=== PATIENT | female | born 1950 | race African-American/Black ===

== ENCOUNTER → 2019-10-18 | Day surgery (SDC) | payer MEDICARE ==
[2019-10-17 12:10] LABS: BASOPHILS # (AUTO) 0.1 (0.0-0.1); BASOPHILS % 0.6 % (0.0-1.0); EOSINOPHILS # (AUTO) 0.5 (0.0-0.4); EOSINOPHILS % 4.8 % (0.0-6.0); HEMATOCRIT 37.5 % (34.2-44.1); HEMOGLOBIN 11.8 g/dL (12.0-16.0); LYMPHOCYTES # (AUTO) 3.1 (1.0-3.2); LYMPHOCYTES % 28.1 % (18.0-39.1); MEAN CORPUSCULAR HEMOGLOBIN 29.1 pg (28-32); MEAN CORPUSCULAR HGB CONC 31.5 g/dL (31-35); MEAN CORPUSCULAR VOLUME 92.6 fL (81-99); MONOCYTES % 8.8 % (4.4-11.3); NEUTROPHILS # (AUTO) 6.4 (2.1-6.9); NEUTROPHILS % 56.8 % (38.7-80.0); PLATELET COUNT 231 x10e3/uL (140-360); RED BLOOD COUNT 4.05 x10e6/uL (3.6-5.1); RED CELL DISTRIBUTION WIDTH 13.8 % (11.7-14.4)
[2019-10-17 12:29] LABS: ANION GAP 15.6 mmol/L (8-16); BLOOD UREA NITROGEN 21 mg/dL (7-26); BUN/CREATININE RATIO 21 (6-25); CALCIUM 9.8 mg/dL (8.4-10.2); CARBON DIOXIDE 20 mmol/L (22-29); CHLORIDE 105 mmol/L (98-107); CREATININE, SERUM 0.99 mg/dL (0.57-1.11); EST GLOMERULAR FILTRATION RATE > 60 ML/MIN (60-); GLUCOSE 77 mg/dL (74-118); POTASSIUM 4.6 mmol/L (3.5-5.1); SODIUM 136 mmol/L (136-145)
--- NOTE | 2019-10-17 12:41 | Diagnostic Imaging Report ---
EXAM: CHEST 2 VIEWS DATE: 10/17/2019 11:47 AM INDICATION: Preoperative evaluation, left knee surgery COMPARISON: None FINDINGS: The trachea is midline. The lungs are symmetrically expanded without evidence for large focal consolidation, pneumothorax, or significant pleural effusion. The cardiomediastinal silhouette and pulmonary vasculature are within normal limits. No acute osseous abnormality is identified. The surrounding soft tissues are unremarkable. IMPRESSION: No acute cardiopulmonary process identified. Signed by: Dr. Christian Clemens MD on 10/17/2019 12:37 PM
[~2019-10-18] MED LIST: ADVIL200 MG PO; BUPIVACAINE 0.5%/EPI 30 ML SDV INJ ONE; CEFAZOLIN SOD 1 GM/NS 50ML 100 ML IV ONE; DEXAMETHASONE SOD PHOS INJ 4 MG/ML VIAL ONE; DIOVAN160 MG PO; FENTANYL CITRATE/PF 100MCG/2 ML INJ ONE; HYDROCHLOROTHIA25 MG PO; LATANOPROST2.5 ML OU; LIDOCAINE HCL 2% LOCAL INJ 5 ML SDV VIAL INJ ONE; METOCLOPRAMIDE HCL 10 MG/2ML VIAL ONE; MIDAZOLAM HCL 2 MG/2 ML VIAL ONE; MULTIVITAMINS1 EAC7 PO; ONDANSETRON HCL INJ 2MG/ML 2ML 2 MG/ML VIAL ONE; PROPOFOL IV EMULSION 10 MG/ML 20 ML VIAL ONE; SEVOFLURANE INHAL SOLN 250 ML PEN BTL ONE; TIMOLOL MALEATE5 M3 OU; TRIAMTERENE-HC1 EAC2 PO
--- OUTSIDE RECORDS SUMMARY | 2019-10-18 05:43 | XMS REPORT ---
Author [facility] Address Unknown Phone Unavailable Care Team Providers Care Personal Property Assessor Name Role Phone ALIZA HODGES Unavailable Unavailable Problems This patient has no known problems. Allergies, Adverse Reactions, Alerts This patient has no known allergies or adverse reactions. Medications This patient has no known medications. Results Test Description Test Time Test Comments Text Results Atomic Results Result Comments CHEST 2 VIEWS 2019-10-17 12:37:00 [place] [address] Patient Name: PARVEZ PRINGLE MR #: [id number] : 1950 Age/Sex: 69/F Req #: [id number] Adm Physician: Ordered by: ALIZA HODGES MD Report #: [id number] Location: OR Room/Bed: Procedure: [id number] DX/CHEST 2 VIEWS Exam Date: 10/17/19 Exam Time: 1210 REPORT STATUS: Signed EXAM: CHEST 2 VIEWS DATE: 10/17/2019 11:47 AM IN DICATION: Preoperative evaluation, left knee surgery COMPARISON: None FINDINGS: The trachea is midline. The lungs are symmetrically expanded without evidence for large focal consolidation, pneumothorax, or significant pleural effusion. The cardiomediastinal silhouette and pulmonary vasculature are within normal limits. No acute osseous abnormality is identified. The surrounding soft tissues are unremarkable. IMPRESSION: No acute cardiopulmonary process identified. Signed by: Dr. Christian Clemens MD on 10/17/2019 12:37 PM Dictated By: CHRISTIAN CLEMENS MD 1237 Transcribed By: SUKI on 10/17/19 1237 COPY TO: ALIZA HODGES MD SCR MAMM BILATERAL EUNICE CAD DIGITAL 2019-05-26 11:03:17 - SCR MAMM BILATERAL EUNICE CAD DIGITALBILATERAL DIGITAL SCREENING MAMMOGRAM 3D/2D WITH CAD: 05/26/2019CLINICAL: Asymptomatic. Digital breast tomosynthesis was performed in addition to routine CC and MLO views. Current mammographic images were evaluated by either a [employer]ke[employer] M-Vu or a [employer] ImageChecker CAD (computer aided detection system). Comparison is made to exams dated 05/12/2018 mammogram - [facility], 03/12/2017 mammogram - [facility], and 01/17/2016 mammogram - [facility]. The tissue of both breasts is predominantly fatty. No suspicious mass, architectural distortion, malignant type calcification, or lymph node abnormality detected. Breast architecture is stable compared to prior exams.IMPRESSION: NEGATIVEThere is no mammographic evidence of malignancy. Resume annual screening mammography in one year. Nash Tinsley M.D. ss/penrad:05/26/2019 11:03:17 Plugger: Laureen Kaiser , [facility] sent: BIRADS 1-2 Normal Mammogram BI-RADS: 1 Negative
--- OUTSIDE RECORDS SUMMARY | 2019-10-18 05:43 | XMS REPORT | Encounter Summary ---
Author Organization Unknown Address [address] [place] [address] Phone [phone] Care Team Providers Care Hse Advisor Name Role Phone Dr. John Harrington 3 [phone] John Harrington Jr, MD 3 [phone] Sis Carver MD 111 [phone] Norbert Long MD 130 [phone] Reason for Visit Quality BMI DEPRESSION FALL; AWV Annual Wellness Visit Female (VFP); hypertension; Quality 65+ Instructions 1. Adult health examination 2. Body mass index 30+ - obesity learning about healthy weight body mass index: care instructions 3. Advance directive discussed with patient advance care planning: care instructions 4. Depression screening 5. At risk for falls preventing falls: care instructions 6. Benign essential hypertension CMP, serum or plasma CBC w/ auto diff lisinopril 20 mg tablet hydrochlorothiazide 25 mg tablet 7. Mixed hyperlipidemia lipid panel, serum 8. Immunization Adacel (Tdap Adolesn/Adult)(PF)2 Lf-(2.5-5-3-5)-5 Lf/0.5 mL IM syringe 9. Screening for malignant neoplasm of breast MAMMO, screening, bilateral 10. Disorder of bone and articular cartilage bone density 11. Screening for osteoporosis 12. Mild recurrent major depression depression treatment: care instructions 13. Adverse reaction to drug Discussion Note: None recorded. Plan of Care Patient Instructions Screening Recommendations 1. Vaccines Pneumococcal: discussed today and information sent with patient in their Annual Wellness health folder Influenza: discussed today and information sent with patient in their Annual Wellness health folder Shingles: discussed today and information sent with patient in their Annual Wellness health folder Tetanus: Recommended today 2. Mammography Screening: Ordered 3. Colorectal cancer Screening Colonoscopy: discussed today and information sent with patient in their Annual Wellness health folder Fecal Occult Blood: No screening necessary 4. Bone Mass Measurement: Ordered 5. Pap test / Pelvic Exam Screening: No screening necessary 6. Eye Exam Screening: discussed today 7. Cholesterol Screening: discussed today 8. Diabetes Screening: discussed today It was good to see you in the office today for your Medicare Annual Wellness Visit. You have been provided some information on healthy nutrition, including a diet rich in fruits and vegetables, minimizing simple carbohydrates, salt, and saturated fats. I want to encourage regular cardiovascular exercise such as walking at least 30 minutes daily, 5 times per week. Please remember to schedule any preventive health measures that we talked about today. You have also been provided education on fall prevention and community- based lifestyle interventions to help reduce health risks and promote healthy living in your Annual Wellness folder. Reminders Provider Appointments None recorded. Lab CMP, Serum or Plasma 02/14/2019 [facility] CBC W/ Auto Diff 02/14/2019 [facility] Lipid Panel, Serum 02/14/2019 [facility] Referral None recorded. Procedures None recorded. Surgeries None recorded. Imaging Bone Density 02/14/2019 [facility] MAMMO, Screening, Bilateral 02/14/2019 [facility] Medications Name Start Date amlodipine 5 mg tablet TAKE 1 TABLET BY MOUTH EVERY DAY dorzolamide 2 % eye drops hydrochlorothiazide 12.5 mg capsule hydrochlorothiazide 25 mg tablet Take 1 tablet every day by oral route for 90 days. latanoprost 0.005 % eye drops Instill 1 drop every day by ophthalmic route for 75 days. lisinopril 20 mg tablet Take 1 tablet every day by oral route for 90 days. Restasis 0.05 % eye drops in a dropperette timolol maleate 0.5 % eye drops Apply 1 drop every day by ophthalmic route for 90 days. Medications Administered None recorded. Vitals Height Weight BMI Blood Pressure 5 ft 5 in 201 lbs 33.4 kg/m2 160/90 mm[Hg] Lab Results None recorded. Allergies Code Code System Name Reaction Severity Status Onset 3992 RxNorm Epinephrine Tachycardia Active 293070 RxNorm Mold Active Problems Name Status Onset Date Source Benign Essential Hypertension Active 03/30/2017 Generalized Anxiety Disorder Active 12/30/2017 Bilateral Glaucoma Active 12/30/2017 Mixed Hyperlipidemia Active 07/08/2018 Hypercalcemia Active 07/08/2018 Liver Enzymes Abnormal Active 07/08/2018 Procedures Date Name Performed by 11/15/2017 Eye Surgery Information not available 11/15/2015 Other Information not available 11/15/2009 Other Information not available 11/15/1977 Other Information not available Cholecystectomy (Gall Bladder Removal) Information not available Hysterectomy (Total) Information not available Tubal Ligation Information not available 02/14/2019 Bone Density [facility] [address] [place] [address] (Work [address]) 02/14/2019 MAMMO, Screening, Bilateral [facility] [address] [place] [address] (Work [address]) Vaccine List Vaccine Type influenza, high dose seasonal 09/15/20180.5 mL pneumococcal conjugate PCV 13 03/21/20180.5 mL pneumococcal polysaccharide PPV23 02/04/20170.5 mL Tdap 0.5 mL zoster subunit 03/25/2018 09/15/20180.5 mg Social History Smoking Status Never Smoker Past Encounters 02/14/2019 Adult Health Examination; Body Mass Index 30+ - Obesity; Advance Directive Discussed with Patient; Depression Screening; At Risk for Falls; Benign Essential Hypertension; Mixed Hyperlipidemia; Immunization; Screening for Malignant Neoplasm of Breast; Disorder of Bone and Articular Cartilage; Screening for Osteoporosis; Mild Recurrent Major Depression; Adverse Reaction to Drug John Harrington Jr, MD: [address] [facility], [facility], [place] [address], Ph. History of Present Illness Hypertension Reported By: Patient HPI: Severity: mild. Onset/Timing: gradual onset. Alleviating Factors: relieved with rest, medication. Self Care: not under emotional stress, blood pressure goal: 130/80. Associated Symptoms: no shortness of breath, no fatigue, no decline in exercise capacity Mini Cog Reported By: Patient Functional Ability: Personal/Social/ Draw a clock and write in the numbers in the correct place, and set the time to 10 minutes after 11 o'clock was completed correctly? Yes, 3 word recall: Your nurse or doctor will ask you to remember 3 words. In 5 minutes, they will ask you to repeat them. Patient recalled 3 words Hyperlipidemia Reported By: Patient HPI: Type of hyperlipidemia: combined, hypercholesterolemia. Duration: chronic. Current Therapy: currently taking:. Complications: no coronary artery disease Review of Systems Comprehensive General Adult ROS Reported By: Patient Constitutional: Constitutional: no significant weight gain, no significant weight loss Cardiovascular: Cardiovascular: no chest pain, no shortness of breath when walking Respiratory: Respiratory: no cough, no wheezing, no shortness of breath Endocrine: Endocrine: no fatigue Physical Exam Cardiology Exam Reported By: Patient Constitutional: General Appearance: well-nourished, well-developed, appears stated age. Level of Distress: comfortable Lungs: Respiratory Effort: unlabored. Chest Exam: no chest wall tenderness. Auscultation: clear, no wheezing, no rales, no rhonchi Cardiovascular: Rate And Rhythm: regular. Heart Sounds: normal S1, physiologically split S2, no rub, no gallop, no click. Systolic Murmur: not heard. Diastolic Murmur: not heard. Extremities: no cyanosis, no edema, no peripheral signs of emboli Peripheral Pulses: Pulses: full and equal in all extremities except if noted Skin: Inspection and Palpation: warm and dry
--- OUTSIDE RECORDS SUMMARY | 2019-10-18 05:44 | XMS REPORT | Encounter Summary ---
Author Organization Unknown Address [address] [place] [address] Phone [phone] Care Team Providers Care Brim Presser Name Role Phone Dr. John Harrington 3 [phone] John Harrington Jr, MD 3 [phone] Sis Carver MD 111 [phone] Norbert Long MD 130 [phone] Reason for Visit hypertension Instructions 1. Benign essential hypertension Discussion Note: None recorded. Patient educational handouts: No information available. Plan of Care Reminders Provider Appointments None recorded. Lab None recorded. Referral None recorded. Procedures None recorded. Surgeries None recorded. Imaging None recorded. Medications Name Start Date fluticasone propionate 50 mcg/actuation nasal spray,suspension [place] 1 spray twice a day by intranasal route. hydrochlorothiazide 25 mg tablet Take 1 tablet every day by oral route for 90 days. latanoprost 0.005 % eye drops Instill 1 drop every day by ophthalmic route for 75 days. timolol maleate 0.5 % eye drops Apply 1 drop every day by ophthalmic route for 90 days. valsartan 320 mg tablet Take 1 tablet every day by oral route for 90 days. Medications Administered None recorded. Vitals Height Weight BMI Blood Pressure 5 ft 5 in 199.4 lbs 33.2 kg/m2 (1) 144/90 mm[Hg] (2) 140/84 mm[Hg] (3) 140/84 mm[Hg] Lab Results None recorded. Allergies Code Code System Name Reaction Severity Status Onset 3992 RxNorm Epinephrine Tachycardia Active 259353 RxNorm Mold Active Problems Name Status Onset [...] not available Tubal Ligation Information not available Vaccine List Vaccine Type influenza, high dose seasonal 09/15/20180.5 mL pneumococcal conjugate PCV 13 03/21/20180.5 mL pneumococcal polysaccharide PPV23 02/04/20170.5 mL Tdap 0.5 mL zoster subunit 03/25/2018 09/15/20180.5 mg Social History Smoking Status Never Smoker Past Encounters 04/06/2019 Benign Essential Hypertension John Harrington Jr, MD: [address], [address], [place] [address], Ph. 03/16/2019 Benign Essential Hypertension; Rihwmlzgecn-ekqksobisx-zmituu Inhibitor Adverse Reaction; Seasonal Allergy John Harrington Jr, MD: [address], [address], [place] [address], Ph. History of Present Illness Hypertension Reported By: Patient HPI: Severity: mild. Onset/Timing: gradual onset. Alleviating Factors: relieved with rest, medication. Self Care: not under emotional stress, blood pressure goal: 130/80. Associated Symptoms: no shortness of breath, no fatigue, no decline in exercise capacity Note:Patient presents for routine blood pressure evaluation. Currently without new complaint. Review of Systems Comprehensive General Adult ROS Reported By: Patient Constitutional: Constitutional: no significant weight gain, no significant weight loss Cardiovascular: Cardiovascular: no chest pain, no shortness of breath when walking Respiratory: Respiratory: no cough, no wheezing, no shortness of breath Endocrine: Endocrine: no fatigue Physical Exam Neurology Exam, Cardiology Exam Reported By: Patient Constitutional: Weight: well-nourished. Ambulation: ambulates independently Head: Size/Trauma: normocephalic Mental Status: Orientation oriented to person, oriented to place, oriented to time. Mood/Affect: appropriate mood, appropriate affect. Language: has spontaneous speech. Memory: recent memory intact, remote memory intact. Fund of Knowledge: current events, past history
--- OUTSIDE RECORDS SUMMARY | 2019-10-18 05:44 | XMS REPORT | Encounter Summary ---
Author Organization Unknown Address [address] [place] [address] Phone [phone] Care Team Providers Care Head Of Academic Technology Name Role Phone Dr. John Harrington 3 [phone] John Harrington Jr, MD 3 [phone] iSs Carver MD 111 [phone] Norbert Long MD 130 [phone] Reason for Visit hypertension Instructions 1. Benign essential hypertension valsartan 320 mg tablet urinalysis, dipstick 2. Osteoarthritis of knee XR, knee, 3 view Discussion Note: None recorded. Patient educational handouts: No information available. Plan of Care Reminders Provider Appointments Est Patient 08/18/2019 11:30AM John Harrington Jr, MD Lab Urinalysis, Dipstick 07/26/2019 [facility] Referral None recorded. Procedures None recorded. Surgeries None recorded. Imaging XR, Knee, 3 View 07/26/2019 [facility] Medications Name Start Date fluticasone propionate 50 mcg/actuation nasal spray,suspension [place] 1 spray twice a day by intranasal route. hydroxyzine HCl 50 mg tablet Take 1 tablet twice a day by oral route as needed for 15 days. latanoprost 0.005 % eye drops Instill 1 drop every day by ophthalmic route for 75 days. timolol maleate 0.5 % eye drops Apply 1 drop every day by ophthalmic route for 90 days. triamterene 37.5 mg-hydrochlorothiazide 25 mg tablet Take 1 tablet every day by oral route for 90 days. valsartan 320 mg tablet Take 1 tablet every day by oral route for 90 days. Medications Administered None recorded. Vitals Height Weight BMI Blood Pressure 5 ft 5 in 201.2 lbs 33.5 kg/m2 160/90 mm[Hg] Lab Results None recorded. Allergies Code Code System Name Reaction Severity Status Onset 3992 RxNorm Epinephrine Tachycardia Active 372443 RxNorm Mold Active Problems Name Status Onset [...] not available Tubal Ligation Information not available 07/26/2019 XR, Knee, 3 View [facility] [address] [place] [address] ([address]) Vaccine List Vaccine Type influenza, high dose seasonal 09/15/20180.5 mL pneumococcal conjugate PCV 13 03/21/20180.5 mL pneumococcal polysaccharide PPV23 02/04/20170.5 mL Tdap 0.5 mL zoster subunit 03/25/2018 09/15/20180.5 mg Social History Tobacco Smoking Status Never Smoker Past Encounters 07/26/2019 Benign Essential Hypertension; Osteoarthritis of Knee John Harrington Jr, MD: [address] [facility], [address], [place] [address], Ph. History of Present Illness Hypertension Reported By: Patient HPI: Severity: intense. Onset/Timing: gradual onset. Alleviating Factors: relieved with [...] Cardiology Exam Reported By: Patient Constitutional: Weight: obese. Ambulation: ambulates independently Head: Size/Trauma: normocephalic Mental Status: Orientation oriented to person, oriented to place, oriented to time. Mood/Affect: appropriate mood, appropriate affect. Language: has spontaneous speech. Memory: recent memory intact, remote memory intact. Fund of Knowledge: current events, past history
--- OUTSIDE RECORDS SUMMARY | 2019-10-18 05:44 | XMS REPORT | Encounter Summary ---
Author Organization Unknown Address [address] [place] [address] Phone [phone] Care Team Providers Care Senior Java Web Application Developer Name Role Phone Dr. John Harrington 3 [phone] John Harrington Jr, MD 3 [phone] Sis Carver MD 111 [phone] Norbert Long MD 130 [phone] Reason for Visit rash Instructions 1. Benign essential hypertension valsartan 320 mg tablet triamterene 37.5 mg-hydrochlorothiazide 25 mg tablet 2. Mixed hyperlipidemia 3. Pruritus of skin hydroxyzine HCl 50 mg tablet Discussion Note: None recorded. Patient educational handouts: No information available. Plan of Care Reminders Provider Appointments Est Patient 07/14/2019 9:15AM John Harrington Jr, MD Lab None recorded. Referral None recorded. Procedures None recorded. Surgeries None recorded. Imaging None recorded. Medications Name Start Date fluticasone propionate 50 mcg/actuation nasal spray,suspension [place] 1 spray twice a day by intranasal route. hydrochlorothiazide 25 mg tablet Take 1 tablet every day by oral route for 90 days. hydroxyzine HCl 50 mg tablet Take 1 [...] BMI Blood Pressure 5 ft 5 in 204 lbs 33.9 kg/m2 (1) 178/90 mm[Hg] (2) 152/88 mm[Hg] Lab Results None recorded. Allergies Code Code System Name Reaction Severity Status Onset 3992 RxNorm Epinephrine Tachycardia Active 943909 RxNorm Mold Active Problems Name Status Onset [...] Tobacco Smoking Status Never Smoker Past Encounters 06/22/2019 Benign Essential Hypertension; Mixed Hyperlipidemia; Pruritus of Skin John Harrington Jr, MD: [address] [facility], [address], [place] [address], Ph. History of Present Illness Rash/Skin Lesion Reported By: Patient HPI: Quality: not painful, not bleeding. Severity: mild. Duration: has noted for . Onset/Timing: abrupt onset. Context: no new detergents or skin products, no one else with similar rash. Alleviating Factors: ; No relief with OTC antihistamines. Associated Symptoms: no fever, no cold symptoms, no nausea, no vomiting, no diarrhea; No mucocutaneous involvement, shortness of breath, or wheezing. Treatment History: no history of treatment Review of Systems:ROS as noted in the HPI Review of Systems Comprehensive General Adult ROS Reported By: Patient Constitutional: Constitutional: no significant weight gain, no significant weight loss Cardiovascular: Cardiovascular: no chest pain, no shortness of breath when walking Respiratory: Respiratory: no cough, no wheezing, no shortness of breath Endocrine: Endocrine: no fatigue Physical Exam Neurology Exam, General Rash/Skin Lesion Exam Reported By: Patient Constitutional: Weight: well-nourished. Ambulation: ambulates independently Head: Size/Trauma: normocephalic Mental Status: Orientation oriented to person, oriented to place, oriented to time. Mood/Affect: appropriate mood, appropriate affect. Language: has spontaneous speech. Memory: recent memory intact, remote memory intact. Fund of Knowledge: current events, past history Skin: Lesion Type: papules. Color: flesh colored. General Appearance clustered. Infectious signs: none, no drainage, no erythema, no swelling
--- OUTSIDE RECORDS SUMMARY | 2019-10-18 05:44 | XMS REPORT | Encounter Summary ---
Author Organization Unknown Address [address] [place] [address] Phone [phone] Care Team Providers Care Physical Therapist Clinic Director Name Role Phone Dr. John Harrington 3 [phone] John Harrington Jr, MD 3 [phone] Sis Carver MD 111 [phone] Norbert Long MD 130 [phone] Reason for Visit hypertension Instructions 1. Benign essential hypertension 2. Influenza vaccination Fluzone High-Dose 2018-20 (PF) 180 mcg/0.5 mL intramuscular syringe Discussion Note: None recorded. Patient educational handouts: No information available. Plan of Care Reminders Provider Appointments Est Patient 08/21/2019 3:45PM John Harrington Jr, MD Lab None recorded. Referral None recorded. Procedures None recorded. Surgeries None recorded. Imaging None recorded. Medications Name Start Date fluticasone propionate 50 mcg/actuation nasal spray,suspension [place] 1 spray twice a day by intranasal [...] BMI Blood Pressure 5 ft 5 in 203 lbs 33.8 kg/m2 (1) 138/86 mm[Hg] (2) 136/82 mm[Hg] Results Lab Results Date Name Specimen Result Interpretation Description Value Range Status Address 07/26/2019 Urinalysis, Dipstick Color Color yellow [facility]: [address] Color Appearance clear [facility]: [address], [place] Color Glucose negative [facility]: [address] [place] Color Bilirubin negative [facility]: [address] [place] Color Ketones negative [facility]: [address] [place] Color Specific [place] 1.010 [facility]: [address] [place] Color Blood negative [facility]: [address] [place] Color PH 7.0 [facility]: [address], [place] Color Protein negative [facility]: [address], [place] Color Urobilinogen 0.2 [facility]: [address], [place] Color Nitrites negative [facility]: [address], [place] Color Leukocytes negative [facility]: [address], [place] Allergies Code Code System Name Reaction Severity Status Onset 3992 RxNorm Epinephrine Tachycardia Active 562262 RxNorm Mold Active Problems Name Status Onset Date Source Benign Essential Hypertension Active 03/30/2017 Generalized Anxiety Disorder Active 12/30/2017 Bilateral Glaucoma Active 12/30/2017 Mixed Hyperlipidemia Active 07/08/2018 Hypercalcemia Active 07/08/2018 Liver Enzymes Abnormal Active 07/08/2018 Procedures Date Name Performed by 11/15/2017 Eye Surgery Information not available 11/15/2016 Orthopedic Surgery Information not available 11/15/2015 Other Information not available 11/15/2009 Other Information not available 11/15/1977 Other Information not available 11/15/1974 Other Information not available 11/15/1970 Other Information not available Cholecystectomy (Gall Bladder Removal) Information not available Hysterectomy (Total) Information not available Tubal Ligation Information not available 07/26/2019 XR, Knee, 3 View [facility] [address] [place] [address] (Work Place) Vaccine List Vaccine Type influenza, high dose seasonal 09/15/20180.5 mL 08/18/20190.5 mL pneumococcal conjugate PCV 13 03/21/20180.5 mL pneumococcal polysaccharide PPV23 02/04/20170.5 mL Tdap 0.5 mL zoster subunit 03/25/2018 09/15/20180.5 mg Social History Tobacco Smoking Status Never Smoker Past Encounters 08/18/2019 Benign Essential Hypertension; Influenza Vaccination John Harrington Jr, MD: [address], [place] [address], Ph. 07/26/2019 Benign Essential Hypertension; Osteoarthritis of Knee John Harrington Jr, MD: [address], [place] [address], Ph. History of Present Illness Hypertension Reported By: Patient HPI: Severity: mild, intense. Onset/Timing: gradual onset. Alleviating Factors: relieved with rest, medication. Self Care: not under emotional stress, blood pressure goal: 130/80. Associated Symptoms: no shortness of breath, no fatigue, no decline in exercise capacity Hyperlipidemia Reported By: Patient HPI: Type of hyperlipidemia: combined, hypercholesterolemia. Duration: chronic. Current Therapy: currently taking: no med therapy, last LDL level: 172 date: 172. Complications: no coronary artery disease. Risk Factors: hypertension, obesity Note:Patient presents for routine blood pressure evaluation. [...] Exam Reported By: Patient Constitutional: General Appearance: well-developed, appears stated age, obese. Level of Distress: comfortable Lungs: Respiratory Effort: [...]
--- OUTSIDE RECORDS SUMMARY | 2019-10-18 05:44 | XMS REPORT | Encounter Summary ---
Author Organization Unknown Address [address] [place] [address] Phone [phone] Care Team Providers Care Install Technician Name Role Phone Dr. John Harrington 3 [phone] John Harrington Jr, MD 3 [phone] Sis Carver MD 111 [phone] Norbert Long MD 130 [phone] Reason for Visit hypertension; URI Instructions 1. Benign essential hypertension valsartan 320 mg tablet 2. Doxjanxedsm-ysphpidqnb-imidvk inhibitor adverse reaction 3. Seasonal allergy fluticasone propionate 50 mcg/actuation nasal spray,suspension triamcinolone acetonide 40 mg/mL suspension for injection dexamethasone 4 mg/mL injection solution Discussion Note: None recorded. Patient educational handouts: No information available. Plan of Care Reminders Provider Appointments None recorded. Lab None recorded. Referral None recorded. Procedures None recorded. Surgeries None recorded. Imaging None recorded. Medications Name Start Date fluticasone propionate 50 mcg/actuation nasal spray,suspension [place] 1 spray twice a day by intranasal [...] ft 5 in 201 lbs 33.4 kg/m2 (1) 150/80 mm[Hg] (2) 152/80 mm[Hg] Lab Results Date Name Specimen Result Interpretation Description Value Range Status Address 02/17/2019 CBC W/ Auto Diff Wbc 9.86 x10*3/L 3.98-10.04 x10*3/L [facility] [address] [facility] [facility] [facility] Rbc 4.13 10*12/L 3.93-5.22 10*12/L Final [facility] Laboratory: [address] [place] Hemoglobin 12.10 g/dL 11.20-15.70 g/dL Final [facility] Laboratory: [address] [place] Hematocrit 37.7 % 34.1-44.9 % Final [facility] Laboratory: [address] [place] Mcv 91.3 fL 80.0-100.0 fL Final [facility] [address] [facility] [facility] Mch 29.3 pg 25.6-32.2 pg Final [facility] [address] [facility] [facility] Low Mchc 32.1 g/dL 32.2-35.5 g/dL Final [facility] [address] [facility] [facility] RDW-SD 45.7 fL 36.4-46.3 fL Final [facility] [address] [facility] [facility] Platelet Count 296.0 k/uL 182.0-369.0 k/uL Final [facility]: [address] [facility] [facility] Mpv 11.5 fL 7.5-11.5 fL Final [facility] Laboratory: [address] [place] Neut% 55.4 % 34.0-71.1 % Final [facility]: [address] [facility] Lymph% 25.6 % 19.3-51.7 % Final [facility] [address] [facility] High Mon% 12.7 % 4.7-12.5 % Final [facility]: [address] [facility] High Eos% 5.9 % 0.7-5.8 % Final [facility] [address] [facility] Baso% 0.4 % 0.1-1.2 % Final [facility] Laboratory: [address] [place] Neut# 5.5 x10*3/L 1.6-6.1 x10*3/L Final [facility] [address] [facility] Lymph# 2.5 x10*3/L 1.2-3.7 x10*3/L Final [facility] Laboratory: [address] [place] High Mon# 1.3 x10*3/L 0.2-0.9 x10*3/L Final [facility] Laboratory: [address] [place] High Eos# 0.58 x10*3/L 0.04-0.36 x10*3/L Final [facility] Laboratory: [address] [facility] [place] Baso# 0.04 x10*3/L 0.01-0.08 x10*3/L Final [facility]: [address] [facility] [facility] 02/17/2019 CMP, Serum or Plasma Alt 28 U/L 0-55 U/L Final [facility] Laboratory: [address] [place] [address] Ast 28 U/L 5-34 U/L Final [facility] Laboratory: [address] [place] [address] High Bun 22.1 mg/dL 9.8-20.1 mg/dL Final [facility] Laboratory: [address] Alk Phos 69 unit/L 40-150 unit/L Final [facility] Laboratory: [address] [place] [address] High Glucose 102 mg/dL 70-99 mg/dL Final [facility] Laboratory: [address] [place] [address] Albumin 4.2 g/dL 3.5-5.0 g/dL Final [facility] Laboratory: [address] [place] [address] Creatinine 1.01 mg/dL 0.57-1.11 mg/dL Final [facility] Laboratory: [address] [place] [address] ABNORMAL eGFR Non- 55 mL/min/1.73m2 Final [facility] Laboratory: [address] Total Bilirubin 0.3 mg/dL 0.2-1.2 mg/dL Final [facility] Laboratory: [address] eGFR - >60 mL/min/1.73m2 Final [facility]: [address] [facility] Sodium 136 mEq/L 136-145 mEq/L Final [facility] Laboratory: [address] Potassium 4.4 mEq/L 3.5-5.1 mEq/L Final [facility] Laboratory: [address] [place] Chloride 103 mmol/L 98-107 mmol/L Final [facility] Laboratory: [address] [place] High Total Protein 8.8 g/dL 6.4-8.3 g/dL Final [facility] Laboratory: [address] [place] Calcium 10.1 mg/dL 8.4-10.2 mg/dL Final [facility] Laboratory: [address] [place] Low Co2 22.1 mmol/L 23.0-31.0 mmol/L Final [facility] Laboratory: [address] [place] Anion Gap 11 calc Final [facility]: [address] [facility] [facility] 02/17/2019 Lipid Panel, Serum Hdl 40 mg/dL 40-60 mg/dL Final [facility] Laboratory: [address] [place] High Triglyceride 155 mg/dL 0-149 mg/dL Final [facility] Laboratory: [address] [place] VLDL Calc. 31 mg/dL Final [facility] Laboratory: [address] [place] cholesterol/HDL Ratio 6.1 mg/dL Final [facility] Laboratory: [address] [place] High non-HDL Cholesterol Calc. 203 mg/dL 0-160 mg/dL Final [facility] Laboratory: [address] [place] High Cholesterol 243 mg/dL 0-199 mg/dL Final [facility] Laboratory: [address] High LDL Calc. 172 mg/dL 0-130 mg/dL Final [facility] Laboratory: [address] Allergies Code Code System Name Reaction Severity Status Onset 3992 RxNorm Epinephrine Tachycardia Active 218461 RxNorm Mold Active Problems Name Status Onset [...] Ligation Information not available 02/14/2019 Bone Density Tammy Temple [facility] [address] [place] [address] ([address]) 02/14/2019 MAMMO, Screening, Bilateral [place] [facility] [address] [place] [address] (Work Place) Vaccine List Vaccine Type influenza, high dose seasonal 09/15/20180.5 mL pneumococcal conjugate PCV 13 03/21/20180.5 mL pneumococcal polysaccharide PPV23 02/04/20170.5 mL Tdap 0.5 mL zoster subunit 03/25/2018 09/15/20180.5 mg Social History Smoking Status Never Smoker Past Encounters 03/16/2019 Benign Essential Hypertension; Ltxyoexssfi-nsfwkkjgkx-hghgny Inhibitor Adverse Reaction; Seasonal Allergy John Harrington Jr, MD: [address], [facility] [address], [place] [address], Ph. 02/14/2019 Adult Health Examination; Body Mass Index 30+ - Obesity; Advance Directive Discussed with Patient; Depression Screening; At Risk for Falls; Benign Essential Hypertension; Mixed Hyperlipidemia; Immunization; Screening for Malignant Neoplasm of Breast; Disorder of Bone and Articular Cartilage; Screening for Osteoporosis; Mild Recurrent Major Depression; Adverse Reaction to Drug John Harrington Jr, MD: [address], [facility] [address], [place] [address], Ph. History of Present Illness Hypertension Reported [...] currently taking:. Complications: no coronary artery disease URI - AMS Reported By: Patient Upper Respiratory Symptoms: Onset/Timing: gradual. Duration: constant. Location: head, throat. Quality: no sore throat, nasal congestion/discharge, dry cough. Severity: moderate. Context: no sick contacts, no foreign travel. Associated Symptoms: no fever, no chills, no shortness of breath, no wheezing, no significant weight loss, no diarrhea, no nausea Review of Systems Comprehensive General Adult ROS Reported By: Patient Constitutional: Constitutional: no fever, no night sweats, no significant weight gain, no significant weight loss Eyes: Eyes: no vision change ENMT: Ears: no difficulty hearing, no ear pain. Mouth/Throat: no sore throat Cardiovascular: Cardiovascular: no chest pain, no shortness of breath when walking Respiratory: Respiratory: no wheezing, no shortness of breath, cough Gastrointestinal: Gastrointestinal: no nausea, no diarrhea Musculoskeletal: Musculoskeletal: no arthralgias/joint pain Integumentary: Skin: no rashes Endocrine: Endocrine: no fatigue Allergic/Immunologic: Allergy/Immunologic: runny nose Physical Exam Upper Respiratory Infection Exam Comprehensive, Upper Respiratory Infection Exam, Cardiology Exam Reported By: Patient Constitutional: General Appearance well-nourished, well-developed, appears stated age Skin: Inspection and Palpation: warm and dry Head: Sinuses no tenderness Ears: Right External auditory canal normal appearance, no erythema. Left External auditory canal normal appearance, no erythema. Right Tympanic membrane dull, bulging. Left Tympanic membrane: dull, bulging Nose: Nasal Skin: no lesion, no lacerations. Nasal Mucosa normal, pink and moist Oral Cavity/Mouth: Oral Mucosa: normal, moist, no lesions. Posterior pharynx: lymphoid hyperplasia (cobblestoning) Lymph Nodes: Cervical no palpable lymph node enlargement Neck: Neck symmetrical, trachea midline Lungs: Respiratory effort unlabored. Auscultation breath sounds normal, no wheezing, no rales / crackles, no rhonchi, clear. Chest Exam: no chest wall tenderness Cardiovascular System: Auscultation regular rate and rhythm, no murmur, no rubs, no gallops. Observation/Palpation of peripheral vascular system no edema. Rate And Rhythm regular. Heart Sounds normal s1, physiologically split S2, no click. Systolic Murmur: not heard. Diastolic Murmur: not heard. Extremities: no cyanosis, no peripheral signs of emboli Peripheral Pulses: Pulses: full and equal in all extremities except if noted
--- OUTSIDE RECORDS SUMMARY | 2019-10-18 05:44 | XMS REPORT | Encounter Summary ---
Author Organization Unknown Address [address] [place] [address] Phone [phone] Care Team Providers Care Watch Inspector Name Role Phone Dr. John Harrington 3 [phone] John Harrington Jr, MD 3 [phone] iSs Carver MD 111 [phone] Norbert Long MD 130 [phone] Reason for Visit URI Instructions 1. Benign essential hypertension 2. Seasonal allergy triamcinolone acetonide 40 mg/mL suspension for injection dexamethasone 4 mg/mL injection solution Nasonex 50 mcg/actuation [place] Discussion Note: None recorded. Patient educational handouts: No information available. Plan of Care Reminders Provider Appointments None recorded. Lab None recorded. Referral None recorded. Procedures None recorded. Surgeries None recorded. Imaging None recorded. Medications Name Start Date hydroxyzine HCl 50 mg tablet Take 1 tablet twice a day by oral route as needed for 15 days. latanoprost 0.005 % eye drops Instill 1 drop every day by ophthalmic route for 75 days. Nasonex 50 mcg/actuation [place] 2 sprays every day by intranasal route for 30 days. timolol maleate 0.5 % eye drops [...] 5 in 204 lbs 33.9 kg/m2 (1) 138/82 mm[Hg] (2) 142/84 mm[Hg] Results Lab Results None recorded. Allergies Code Code System Name Reaction Severity Status Onset 3992 RxNorm Epinephrine Tachycardia Active 224755 RxNorm Mold Active Problems Name Status Onset [...] Tobacco Smoking Status Never Smoker Past Encounters 09/01/2019 Benign Essential Hypertension; Seasonal Allergy John Harrington Jr, MD: [address], [facility] [address], [place] [address], Ph. 08/18/2019 Benign Essential Hypertension; Influenza Vaccination John Harrington Jr, MD: [address], [facility] [address], [place] [address], Ph. History of Present Illness Upper Respiratory Symptoms Reported By: Patient URI Reported By: Patient Upper Respiratory Symptoms: Onset/Timing: [...] fever, no night sweats, no significant weight loss Eyes: Eyes: no vision change ENMT: Ears: no difficulty hearing, no ear pain. Mouth/Throat: sore throat Cardiovascular: Cardiovascular: no chest pain, no shortness of breath when walking Respiratory: Respiratory: no wheezing, no shortness of breath, cough Gastrointestinal: Gastrointestinal: no nausea, no diarrhea Musculoskeletal: Musculoskeletal: no arthralgias/joint pain Integumentary: Skin: no rashes Endocrine: Endocrine: fatigue Allergic/Immunologic: Allergy/Immunologic: runny nose Physical Exam Upper Respiratory Infection Exam Comprehensive, Upper Respiratory Infection Exam Reported By: Patient Constitutional: General Appearance in no acute distress Head: Sinuses no tenderness Ears: Right External [...] no wheezing, no rales / crackles, no rhonchi Cardiovascular System: Auscultation regular rate and rhythm, no murmur, no rubs
[2019-10-18 09:40] VITALS: BP 130/74
--- NOTE | 2019-10-18 15:24 | Operative Report ---
DATE OF PROCEDURE: 10/18/2019 SURGEON: Rio Long MD PREOPERATIVE DIAGNOSES: Left knee medial meniscus tear and left knee degenerative joint disease of the knee. POSTOPERATIVE DIAGNOSES: Left knee medial meniscus tear and left knee degenerative joint disease of the knee. OPERATIONS AND PROCEDURES PERFORMED: The patient underwent left knee exam under anesthesia, left knee arthroscopy, left knee partial medial meniscectomy, left knee chondroplasty of the patella, the trochlea, the medial femoral condyle, medial tibial plateau, and the lateral tibial plateau, and also resection of a medial shelf plica. MANAGER INVESTMENT: JJ Tucker. ANESTHESIA: General endotracheal intubation anesthesia. IV FLUIDS: Per the anesthesia record. BRIEF DESCRIPTION OF THE PATIENT'S OPERATIVE PROCEDURE: Ms. Tan was taken to the operating room and placed in the supine position on the operating table. Following induction of general anesthesia as well as endotracheal intubation, the patient's left lower extremity was examined under anesthesia. She was found to have a mild effusion within the knee joint, but otherwise ligamentously stable knee. The patient's lower extremity was prepped and draped in standard surgical fashion. A 2-port technique was used to provide this patient's arthroscopic evaluation of the knee joint. Examination of the suprapatellar pouch and medial and lateral gutters found no evidence of loose bodies. There was, however, evidence of chondromalacia of the patellar and trochlear surfaces. There was also a medial shelf plica interdigitating between the patella and trochlea. This was red and inflamed. The scope was then advanced to medial compartment and medial compartment demonstrated a torn of the posterior horn and root of the medial meniscus. There was also chondromalacia of the articulating surfaces. A combination of biting forceps and a motorized shaver were used to resect the torn portion of meniscus. Chondroplasties of the medial femoral condyle and medial plateau performed at this time. Scope was advanced to the intercondylar notch. Anterior cruciate ligament was identified and found to be intact. The scope was then advanced to the lateral compartment. There was chondromalacia of the lateral tibial plateau. A chondroplasty of this surface was performed. Then, the scope was then placed in suprapatellar pouch and the medial shelf plica was resected. A chondroplasty of the patella and trochlea were performed. The knee was inflated with sterile normal saline. Each of the portal sites were closed using 4-0 nylon suture. The portal sites as well as the knee itself were injected with 0.5% Marcaine with epinephrine. Sterile dressings were applied. The patient was awakened and taken to postanesthesia care unit in stable condition. Corinne Moran acted as assistant shift supervisor for this case and was necessary for both prepping and draping the patient as well as positioning the leg during the case and allowed this case to be successful. MD JAYLENE Wells/DAVONTE /[id number]
== END | disposition home or self-care (01) ==
LOC: OR 05:41
PROVIDERS: ATTEND Specialist
DX: S83.222A Peripheral tear of medial meniscus, current injury, left knee, initial encounter (principal); M17.12 Unilateral primary osteoarthritis, left knee; M22.42 Chondromalacia patellae, left knee; M67.52 Plica syndrome, left knee; R03.0 Elevated blood-pressure reading, without diagnosis of hypertension; F41.9 Anxiety disorder, unspecified; F17.200 Nicotine dependence, unspecified, uncomplicated; Z88.6 Allergy status to analgesic agent; Z88.8 Allergy status to other drugs, medicaments and biological substances; Z01.810 Encounter for preprocedural cardiovascular examination; Z01.812 Encounter for preprocedural laboratory examination; Z01.818 Encounter for other preprocedural examination; Z68.34 Body mass index [BMI] 34.0-34.9, adult
CPT/HCPCS: 29881; 36415; 71046; 80048; 85025; 93005; J0690; J1100; J2001; J2250; J2405; J2704; J2765; J3010